=== PATIENT | male | born 1975 | race Two or more races ===

== ENCOUNTER 2021-11-23 15:04 | Emergency (ER) | payer OTHER ==
[~2021-11-23] VITALS: Ht 180.3 cm; Wt 78.5 kg
[2021-11-23] MEDS ORDERED: LOPRESSOR25 MG PO (16:14)
[2021-11-23] MEDS ORDERED: HYDROCHLOROTH12.5 MG PO (16:14)
[2021-11-23] MEDS ORDERED: PROAIR HFA8.5 GM (16:15)
== END 2021-11-23 17:42 | disposition home or self-care (01) ==
LOC: ER 15:04
DX: G51.0 Bell's palsy (principal)